=== PATIENT | male | born 1965 | race African-American/Black ===

== ENCOUNTER 2017-04-15 07:09 | Day surgery (SDC) | payer OTHER ==
[2017-04-15 07:32] LABS: HEMATOCRIT 48.5 % (42.0-54.0); HEMOGLOBIN 15.7 g/dL (13.5-17.5); MCH 27.4 pg (26.0-34.0); MCHC 32.4 g/dL (31.0-37.0); MCV 84.8 fL (80.0-100.0); MEAN PLATELET VOLUME 9.1 fL (7.4-10.4); RBC 5.72 10x6/uL (4.20-6.10); RDW 13.1 % (11.5-14.5); WBC 5.7 10x3/uL (4.8-10.8)
[2017-04-15 07:46] LABS: ANION GAP 9.8 mmol/L (8-16); CALCIUM 9.2 mg/dL (8.5-10.1); CARBON DIOXIDE 30.2 mmol/L (21.0-32.0); CREATININE - SERUM 1.3 mg/dL (0.6-1.3)
[2017-04-15] MEDS ORDERED: MUCINEX600 MG PO (08:22)
[2017-04-15] MEDS ORDERED: EDARBYCLOR 40-1 EACH PO (08:23)
[2017-04-15] MEDS ORDERED: COLACE100 MG PO (08:25)
[2017-04-15] MEDS ORDERED: METAMUCIL FIB1 WAFER PO (08:26)
[2017-04-15] MEDS ORDERED: LIPITOR10 MG PO (08:26)
[2017-04-15 08:38] VITALS: BP 115/77; BMI 29.6
--- NOTE | 2017-04-15 13:59 | NUR ---
CONSULTED ANESTHESIA REGARDING ELEVATED BLOOD PRESSURE. DR MOURA AT BEDSIDE. GIVEN VERBAL ORDERS TO ADMINISTER HYDRALAZINE 10MG IN PACU.
--- NOTE | 2017-04-15 14:12 | NUR ---
CONSULTED ANESTHESIA REGARDING PERSISTENT ELEVATED BLOOD PRESSURE WITH DISASTOLIC READINGS OVER 100. DR. RUVALCABA GAVE ME VERBAL ORDERS TO ADMINISTER ANOTHER HYDRALAZINE 10MG IN PACU.
--- NOTE | 2017-04-15 21:01 | NUR ---
1521 CO NAUSEA ZOFRAN 4MG IV GIVEN 17OO STILL UNABLE TO VOIDED 1730 VOTIMG ON STANDING, STATED FELT BETTER AFTER 1815 FLOMAX .8MG GIVE, SPOKE WITH DR NIX FOR ORDER 1899 YOU TO BATHROOM STILL UNABLE TO VOIDED 1929 VOIDED , IV DC WITH CATHER TIP INTACT
--- NOTE | 2017-04-16 10:17 | OP ---
PATIENT NAME: CARMEL PAYTON MEDICAL RECORD: [id number] :69 LOCATION:[facility] ADMISSION DATE: SURGEON: TONIA NIX MD DATE OF OPERATION: 04/15/2017 PREOPERATIVE DIAGNOSES: 1. Recurrent hemorrhoidal symptoms despite a prior total hemorrhoidectomy. 2. Hematochezia. POSTOPERATIVE DIAGNOSES: 1. Recurrent hemorrhoidal symptoms despite a prior total hemorrhoidectomy. 2. Hematochezia. 3. Three colorectal polyps. PROCEDURES: 1. Procedure for prolapse and hemorrhoids. 2. Total colonoscopy to cecum. 3. Hot biopsy forceps polypectomy times 3. SURGEON: Tonia Nix MD BLOCKER AUTOMATIC: None. BLOOD LOSS: Minimal. ANESTHESIA: General. COMPLICATIONS: None. The risks, possible complications, and alternatives to the procedure were explained to the patient. He elects to proceed. The discussion specifically included, but was not limited to, bleeding requiring an emergency reoperation, infection, intestinal injury. OPERATIVE COURSE: The patient was conveyed to the operating room electively on 04/15/2016. General anesthesia was induced by the anesthesia staff. The patient was placed in the Brown position. A digital rectal examination was performed. Prostate was normal. The colonoscope was inserted through the anus. It was easily advanced to the cecum. The prep was adequate. I intubated the ileum. The ileum appeared normal. I slowly withdrew the endoscope. I irrigated and aspirated extensively. Three polyps were noted. One of these was a flat polyp. The polyps were all sessile. They ranged in size from 6 mm to 2.3 cm. The 2.3-cm polyp was within the rectum. The polyps were removed in their entirety utilizing the hot biopsy forceps polypectomy technique. A retroflexed view was obtained in the rectum. I then unretroflexed the scope and removed it under direct vision. The patient was then placed in the lithotomy position. The buttocks were taped laterally. The anus and perianal areas were sterilely prepped and draped. A PPH dilator retractor was placed. The retractor was sewn in place with 2-0 silks. A mucosal pursestring suture of 2-0 Prolene was applied 1 cm cephalad to the clear retractor. The PPH stapling device was then inserted. The pursestring suture was tied. I then tightened down on the PPH stapling device. It was fired. It was then removed. There was an entire donut of lower rectal OPERATIVE REPORT [id number] FITOCARMEL and hemorrhoidal tissue within the stapling device. Bleeding along the anastomotic staple line was controlled with [id number] 3-0 Vicryls. Gelfoam was applied within the anus and rectum. A combination of sterile preparation and Marcaine were used to infiltrate the perianal tissues. The patient was then conveyed to post-anesthesia care unit, where he was in stable condition. He will be dismissed home on hydrocodone as well as Valium and Colace. I will see him in the office in 3 weeks. TRANSINT:[id number] Voice Confirmation ID: [id number] DOCUMENT ID: [id number] TOINA NIX MD at 1017 CC: ANTONIO WEST MD [id number] DICTATION DATE: 04/15/17 1324 MALT LOADER: 04/15/17 1345 [facility] 04/15/17 [place] [id number] [place] [address]
--- NOTE | 2017-04-16 10:17 | HP ---
PATIENT: CARMEL PAYTON MEDICAL RECORD: [id number] ACCOUNT: [id number] [facility] : 69 ADMISSION DATE: 04/15/17 HISTORY AND PHYSICAL EXAMINATION ADDENDUM: There is no change in his history or physical examination. He has been having hematochezia. Also, recurrent hemorrhoidal symptoms despite undergoing a complete hemorrhoidectomy in the past. The risks, possible complications and alternatives to the procedure were explained to the patient. He elects to proceed. We again reviewed how the PPH procedure works. TRANSINT:[id number] Voice Confirmation ID: [id number] DOCUMENT ID: [id number] TONIA NIX MD at 1017 CC: ANTONIO WEST MD [id number] DICTATION DATE: 04/15/17 1319 FRONT END MECHANIC: 04/15/17 1355 [facility] 04/15/17 [facility] [address] [place] [address]
== END 2017-04-15 19:45 | disposition home or self-care (01) ==
LOC: D.OPS 07:09 → D.PAN 08:00 → D.OPS 08:00 → D.PAN 09:30 → D.OPS 19:45
PROVIDERS: Anesthesiology
DX: K64.9 Unspecified hemorrhoids (principal); K92.1 Melena; K62.4 Stenosis of anus and rectum; I10 Essential (primary) hypertension; Z01.812 Encounter for preprocedural laboratory examination

== ENCOUNTER → 2019-04-16 09:12 | Outpatient (CLI) | payer BC ==
[~2019-04-16 09:12] MED LIST: COLACE100 MG PO; EDARBYCLOR 40-1 EACH PO; LIPITOR10 MG PO; METAMUCIL FIB1 WAFER PO; MUCINEX600 MG PO
--- NOTE | 2019-04-20 15:54 | EC ---
PATIENT:CARMEL PAYTON DATE OF SERVICE: 04/16/19 SEX: M MEDICAL RECORD: [id number] DATE OF : 69 [facility] AGE OF PATIENT: 53 ADMISSION DATE: 04/16/19 REFERRING PHYSICIAN: INTERPRETING PHYSICIAN: WESLEY SERNA MD ECHOCARDIOGRAM REPORT ECHO CHARGES 4 ECHO COMPLETE Date: 04/16/19 CLINICAL DIAGNOSIS: HTN/LVH ECHOCARDIOGRAPHIC MEASUREMENTS (adult normal given) AC root (d.<3.7cm) 3.3 cm LV Septum d (<1.2 cm> 1.0 cm Valve Excursion 2.2 cm LV Septum (systole) 1.7 cm Left Atria (s.<4.0cm> 4.0 cm LVPW d(<1.2cm) 1.1 cm RV (d.<2.3cm) 3.3 cm LVPW (sytole) 1.8 cm LV diastole(<5.6CM) 5.8 cm MV E-F(>70mm/sec) cm LV systole 3.2 cm LVOT Diameter 1.9 cm MV exc.(>10mm) cm Est.ejection fraction (50-75%) % DOPPLER: LVIT cm/sec A 61.0 cm/sec E 74.0 cm/sec LA cm/sec RVSP 21.4 mmHg LVOT 119 cm/sec AOP1/2T m/s Asc. Ao 159 cm/sec RVOT 56.0 cm/sec RA cm/sec PA 83.0 cm/sec AV Gradient Peak 10.1 mmHg AV Mean 4.9 mmHg AV Area 2.5 cm MV Gradient Peak 3.3 mmHg MV Mean 0.83 mmHg MV Area cm COMMENTS: OP - HC Account Advisor: 1 JOCELYN FAMOE Carpenter Supervisor: 3 Dr. Stringer TAPE# PACS Pericardial Effusion N DATE OF SERVICE: Adequate 2D, color flow imaging, spectral Doppler, and M-Mode No LVH. LV internal dimension is normal. Wall motion is normal. EF is greater than or equal to 55%. Aortic valve is tricuspid. No evidence of stenosis by Doppler interrogation. Left atrium is normal at 4.0 cm. Mitral valve shows no prolapse. Trace MR. Right-sided chambers are grossly normal. Trace TR. TRANSINT:[id number] Voice Confirmation ID: [id number] DOCUMENT ID: [id number] ECHOCARDIOGRAM REPORT [id number] CARMEL PAYTON,WESLEY Wilkerson MD at 1554 CC: [id number] DICTATION DATE: 04/20/19 1324 CLINIC CHARGE NURSE: 04/20/19 1350 [facility] CLI 04/16/19 [place] [id number] [place] [id number]
== END | disposition home or self-care (01) ==
LOC: D.HCCECHO 09:00
PROVIDERS: ATTEND Internal Medicine Interventional Cardiology
DX: I51.7 Cardiomegaly (principal)

== ENCOUNTER 2020-11-10 09:10 | Day surgery (SDC) | payer BC, OTHER ==
[2020-11-09 15:35] LABS: BASOPHILS 0.4 % (0-2); EOSINOPHILS 2.2 % (0-7); HEMATOCRIT 43.3 % (42.0-54.0); HEMOGLOBIN 13.9 g/dL (13.5-17.5); IMMATURE GRANULOCYTES 0.2 % (0-5); LYMPHOCYTE ABS# 1.48 10x3/uL (1.32-3.57); LYMPHOCYTES 26.8 % (15-50); MCH 26.9 pg (26.0-34.0); MCHC 32.1 g/dL (31.0-37.0); MCV 83.8 fL (80.0-100.0); MEAN PLATELET VOLUME 9.6 fL (7.4-10.4); MONOCYTES 5.6 % (2-11); NEUTROPHIL ABS# 3.59 10x3/uL (1.78-5.38); NEUTROPHILS 64.8 % (40-80); PLATELET COUNT 181 10x3/uL (130-400); RBC 5.17 10x6/uL (4.20-6.10); RDW 12.9 % (11.5-14.5); WBC 5.5 10x3/uL (4.8-10.8)
[2020-11-09 15:48] LABS: APTT 28.1 SECONDS (22.8-39.4); INR 1.09 (0.85-1.17)
[2020-11-09 16:02] LABS: ANION GAP 10.9 mmol/L (8-16); CALCIUM 9.2 mg/dL (8.5-10.1); CARBON DIOXIDE 29.4 mmol/L (21.0-32.0); CREATININE - SERUM 1.1 mg/dL (0.6-1.3); POTASSIUM - SERUM 3.3 mmol/L (3.5-5.1)
[~2020-11-10] VITALS: Ht 188 cm; Wt 108.0 kg
[~2020-11-10 09:10] MED LIST changes: +BAYER CHEWABLE81 MG PO; +FLOMAX0.4 MG PO; +FLUTICASONE PRO16 GM NASAL; +LOSARTAN-HCTZ1 EAC1 PO; +NIASPAN500 MG PO; +PLAVIX75 MG PO; +PRAVASTATIN SOD10 MG PO
[2020-11-10 10:28] VITALS: BP 165/105; Ht 188 cm; Wt 108.0 kg
--- NOTE | 2020-11-10 16:21 | NUR ---
1430 PT ARRIVED TO ROOM. REPORT RECIEVED AT BEDSIDE. AT BEDSIDE. ELEVATED B/P. PRE OP B/P NOTED. PAIN 02/06. REQUESTED TO TALK TO ANESTHESIA. EXPLAINED HE WAS REVERSED AT THE END OF THE CASE BY ANESTHESIA TO WAKE UP. ANESTHESIA CALLED TO TALK TO , DR MOURA NOTIFIED OF PAIN LEVEL AND THAT HE WAS REVERSED. ORDERS GIVEN TO GIVEN PAIN MED FOR PAIN. 1500 ANESTHIA IN ROOM DOING A ILIAC INGUINAL HYPERGASTRIC BLOCK. WITH GOOD RESULTS. DRESSING CDI. ICE PACKS TO SCOTUM. PT VOIDED X2 300ML FIRST AND 100ML BEFORE BLOCK. 1600 PT VOIDED AFTER BLOCK, 1415 INSTRUCTIONS GIVEN TO PT AND PT APPEARS COMFORTABLE AT THIS TIME. ENCOURAGED PT TO TAKE B/P MEDS
--- NOTE | 2020-12-04 15:14 | OP ---
PATIENT NAME: CARMEL PAYTON MEDICAL RECORD: [id number] :69 [facility] AD[facility]ION DATE: SURGEON: JET NIX MD DATE OF OPERATION: 11/10/2020 PREOPERATIVE DIAGNOSIS: Symptomatic right inguinal hernia. POSTOPERATIVE DIAGNOSIS: Symptomatic right indirect inguinal hernia. PROCEDURE: Open right indirect inguinal hernia repair with polypropylene mesh. SURGEON: Jet Nix MD TOP LIFT COMPRESSER: None. BLOOD LOSS: Minimal. ANESTHESIA: General. COMPLICATIONS: None. The risks, possible complications, and alternatives of the procedure were explained to the patient. He elects to proceed. The discussion specifically included, but was not limited to, bleeding requiring emergency reoperation, infection, chronic pain as well as hernia recurrence. OPERATIVE COURSE: The patient was conveyed to the operating room electively on 11/10/2020. General anesthesia was induced by the anesthesia staff. The abdomen and genitals were sterilely prepped and draped. A transverse incision was accomplished in the right groin. Sharp dissection was carried down through skin and subcutaneous tissues as well as Sheldon fascia. The external oblique aponeurosis was then opened along the direction of its fibers. I bluntly dissected down through the internal oblique and transversus abdominis muscles. A preperitoneal pocket was fashioned bluntly. I have reduced an indirect hernia in its entirety. There was no direct component. No femoral component. I then cut out 2 ovals of polypropylene mesh. These were sutured together one on top of the other with a running #1 Surgidac. The mesh was placed in the preperitoneal space. Once I was satisfied with placement of the mesh, I allowed the internal oblique and transversus abdominis muscles to come together and these were sutured together with multiple interrupted horizontal mattress of 0 Surgidacs. I incorporated a portion of the mesh with these sutures. There was no evidence of nerve entrapment or nerve injury. The external oblique aponeurosis was then closed with a running 0 Vicryl sutures. Sheldon's fascia was approximated with interrupted 3-0 Vicryl. The subdermis was approximated with interrupted 3-0 Vicryl. The skin was approximated with a running intracuticular 3-0 Vicryl. Benzoin and Steri-Strips were applied. The patient was then extubated and conveyed to the postanesthesia care unit where he was in stable condition. TRANSINT:[id number] Voice Confirmation ID: [id number] DOCUMENT ID: [id number] OPERATIVE REPORT [id number] CARMEL PAYTON ROBERT MD at 1514 CC: [id number] DICTATION DATE: 12/04/20 1019 HOSPITAL TECHNICIAN: 12/04/20 1043 [facility] 11/10/20 [place] [id number]
== END 2020-11-10 17:20 | disposition home or self-care (01) ==
LOC: D.OPS 09:10
PROVIDERS: Anesthesiology; ATTEND Surgery
DX: K40.90 Unilateral inguinal hernia, without obstruction or gangrene, not specified as recurrent (principal); K64.8 Other hemorrhoids; I10 Essential (primary) hypertension; E78.5 Hyperlipidemia, unspecified